=== PATIENT | male | born 1950 | race Caucasian/White ===

== ENCOUNTER 2023-11-07 12:35 | Observation (INO) | payer MEDICARE, BC ==
[~2023-11-07] VITALS: Ht 182.9 cm; Wt 87.3 kg
[2023-11-07] MEDS ORDERED: DICL20GE TP (13:09)
[2023-11-07] MEDS ORDERED: CHONDROITIN SULFATE PO (13:09)
[2023-11-07] MEDS ORDERED: NAPR-837 PO (13:09)
[2023-11-07] MEDS ORDERED: ACET-907 PO (13:09)
[2023-11-07] MEDS ORDERED: LOSA-530 PO (13:09)
[2023-11-07] MEDS ORDERED: LIPI20TA PO (13:09)
[2023-11-07] MEDS ORDERED: TRANXENE T PO (13:09)
[2023-11-07] MEDS ORDERED: SYNT75TA PO (13:09)
[2023-11-07] MEDS ORDERED: NORV5TAB PO (13:16)
[2023-11-07 13:31] LABS: BASO % 0.4 % (0.0-1.0); EOS # 0.1 10^3/uL (0.0-0.5); EOS % 0.9 % (0.0-3.0); HEMATOCRIT 46.1 % (42.0-52.0); LYMPH % 17.3 % (24.0-44.0); MEAN CORPUSCULAR HEMOGLOBIN 34.1 pg (27.0-33.0); MEAN CORPUSCULAR HGB CONC 34.7 g/dl (32.0-36.5); MEAN CORPUSCULAR VOLUME 98.3 fl (80.0-96.0); MONO # 0.5 10^3/uL (0.0-0.8); MONO % 9.5 % (2.0-8.0); NEUTROPHILS % 71.5 % (36.0-66.0); PLATELET COUNT, AUTOMATED 174 10^3/uL (150-450); RED BLOOD COUNT 4.69 10^6/uL (4.30-6.10); WHITE BLOOD COUNT 5.6 10^3/uL (4.0-10.0)
[2023-11-07] MEDS ORDERED: ISOVUE-370 76% 100ML VIAL As Ordered ONE (13:32)
[2023-11-07 13:56] LABS: CK-MB VALUE MASS 1.3 NG/ML (<3.6)
[2023-11-07 13:58] LABS: BLOOD UREA NITROGEN 14 MG/DL (9-23); CALCIUM LEVEL 9.1 MG/DL (8.3-10.6); CARBON DIOXIDE LEVEL 27 MMOL/L (20-31); CHLORIDE LEVEL 107 MMOL/L (98-107); CREATININE FOR GFR 0.75 MG/DL (0.70-1.30); GLOMERULAR FILTRATION RATE > 60.0 (>42); GLUCOSE, FASTING 89 MG/DL (74-106); SODIUM LEVEL 138 MMOL/L (136-145)
[2023-11-07 13:59] LABS: CPK CREATINE PHOSPHOKINASE 63 U/L (46-171); MB/CK RELATIVE INDEX 2.06 (< OR =4)
[2023-11-07 14:00] LABS: THYROID STIMULATING HORMONE 1.469 uIU/ML (0.55-4.78)
[2023-11-07 14:01] LABS: FREE T4 1.42 NG/DL (0.89-1.76)
[2023-11-07 14:02] LABS: INR 1.07; PARTIAL THROMBOPLASTIN TIME 25.7 SECONDS (24.8-34.2); PROTHROMBIN TIME 13.5 SECONDS (12.5-14.5)
[2023-11-07] MEDS ORDERED: ACETAMINOPHEN TAB 650MG DOSE (2X325MG) PO PRN (15:15)
[2023-11-07] MEDS ORDERED: CLOR7.5T3 PO (15:24)
[2023-11-07] MEDS ORDERED: ATOR40TA75 PO (15:24)
[2023-11-07] MEDS ORDERED: HOME MED LIST COMPLETE! XX SCH (15:25)
[2023-11-07 17:45] VITALS: TEMP 97.9; O2SAT 96
[2023-11-07 18:26] VITALS: BP 144/88
[2023-11-07 19:57] VITALS: BP 130/78; TEMP 97.9; O2SAT 96
[2023-11-07] MEDS: CLORAZEPATE 3.75MG TAB PO SCH (20:26)
[2023-11-07] MEDS: ENOXAPARIN 40MG/0.4ML SYRINGE (J1650 PER 10MG) SC SCH (20:26)
[2023-11-07] MEDS: ATORVASTATIN 20 MG TAB PO SCH (20:26)
[2023-11-08] VITALS: BP 127/77; TEMP 98.8; O2SAT 94
[2023-11-08 04:20] VITALS: BP 131/78; TEMP 98.6; O2SAT 94
[2023-11-08] MEDS: LEVOTHYROXINE 75MCG TABLET (0.075MG) PO SCH (05:34)
[2023-11-08 06:07] LABS: HEMATOCRIT 43.7 % (42.0-52.0); MEAN CORPUSCULAR HEMOGLOBIN 33.9 pg (27.0-33.0); MEAN CORPUSCULAR HGB CONC 34.3 g/dl (32.0-36.5); MEAN CORPUSCULAR VOLUME 98.9 fl (80.0-96.0); PLATELET COUNT, AUTOMATED 159 10^3/uL (150-450); RED BLOOD COUNT 4.42 10^6/uL (4.30-6.10); WHITE BLOOD COUNT 4.9 10^3/uL (4.0-10.0)
[2023-11-08 06:26] LABS: HEMOGLOBIN A1c 5.4 % (4.0-6.0)
[2023-11-08 06:30] LABS: ALBUMIN 3.2 G/DL (3.2-5.2); ALKALINE PHOSPHATASE 75 U/L (46-116); ALT/SGPT 43 U/L (7.0-40); AST/SGOT 13 U/L (<34); BILIRUBIN,TOTAL 0.5 MG/DL (0.3-1.2); BLOOD UREA NITROGEN 9 MG/DL (9-23); CALCIUM LEVEL 9.1 MG/DL (8.3-10.6); CARBON DIOXIDE LEVEL 30 MMOL/L (20-31); CHLORIDE LEVEL 106 MMOL/L (98-107); CHOLESTEROL LEVEL 143 MG/DL (<200); CHOLESTEROL RISK RATIO 2.76 (<5); CREATININE FOR GFR 0.81 MG/DL (0.70-1.30); GLOMERULAR FILTRATION RATE > 60.0 (>42); GLUCOSE, FASTING 98 MG/DL (74-106); HDL CHOLESTEROL 51.7 MG/DL (>40); LDL CHOLESTEROL 74.5 MG/DL (<100); MAGNESIUM LEVEL 2.1 MG/DL (1.8-2.4); NON-HDL-C 91.3 MG/DL; POTASSIUM SERUM 4.4 MMOL/L (3.5-5.1); SODIUM LEVEL 141 MMOL/L (136-145); TOTAL PROTEIN 5.4 G/DL (5.7-8.2); TRIGLYCERIDES LEVEL 84 MG/DL (<150)
[2023-11-08 08:00] VITALS: BP 174/96; TEMP 97.6; O2SAT 98
[2023-11-08 08:23] VITALS: BP 148/84
[2023-11-08] MEDS: amLODIPine 5 MG TAB PO SCH (08:23)
[2023-11-08] MEDS: ASPIRIN 81MG ENTERIC TABLET PO SCH (08:23)
[2023-11-08] MEDS: LOSARTAN 50MG TABLET PO SCH (08:23)
[2023-11-08] MEDS ORDERED: CLOP75TA99 PO (10:53)
[2023-11-08] MEDS ORDERED: ASPI81TAEC PO (10:53)
[2023-11-08] MEDS ORDERED: ATOR40TA75 PO (10:53)
[2023-11-08 12:00] VITALS: BP 141/80; TEMP 97.8; O2SAT 96
== END 2023-11-08 13:14 | disposition home or self-care (01) ==
LOC: M ED 12:35 → M ED INP 15:15 → M MSPAV 17:47
PROVIDERS: ADMIT Preventive Medicine Undersea and Hyperbaric Medicine; ATTEND Preventive Medicine Undersea and Hyperbaric Medicine
DX: I63.9 Cerebral infarction, unspecified (principal); I10 Essential (primary) hypertension; E78.5 Hyperlipidemia, unspecified; Z79.82 Long term (current) use of aspirin; Z79.899 Other long term (current) drug therapy
CPT/HCPCS: 36415; 70450; 70496; 70498; 70551; 71046; 80047; 80048; 80053; 80061; 82550; 82553; 83036; 83735; 84439; 84443; 84484; 85025; 85027; 85610; 85730; 93005; 93041; 93306; 94760; 96372; 99285; G0378; J1650; Q9967